=== PATIENT | female | born 1975 | race Caucasian/White ===

== ENCOUNTER → 2017-06-27 | Outpatient (CLI) | payer BC ==
[2017-06-27 13:46] LABS: MICROSCOPIC NOT IND
[2017-06-27 13:46] LABS: BASOPHILS # (AUTO) 0.02 x10^3/uL (0-0.1); BASOPHILS % (AUTO) 0 % (0-1); EOSINOPHILS # (AUTO) 0.23 x10^3/uL (0-0.4); EOSINOPHILS % (AUTO) 3 % (1-7); LYMPHOCYTES # (AUTO) 2.24 x10^3/uL (1-3.4); LYMPHOCYTES % (AUTO) 25 % (22-44); MD NO; MEAN CORPUSCULAR HEMOGLOBIN 28.5 pg (27.0-34.8); MEAN CORPUSCULAR HGB CONC 33.3 g/dL (32.4-35.8); MEAN CORPUSCULAR VOLUME 85.7 fL (80-100); MEAN PLATELET VOLUME 10.4 fL (7.4-10.4); MONOCYTES # (AUTO) 0.63 x10^3/uL (0.2-0.8); MONOCYTES % (AUTO) 7 % (2-9); NEUTROPHILS # (AUTO) 5.98 x10^3/uL (1.8-6.8); NEUTROPHILS % (AUTO) 66 % (42-75); PLATELET COUNT 213 x10^3/uL (130-400); RED BLOOD COUNT 5.13 x10^6/uL (3.82-5.3); RED CELL DISTRIBUTION WIDTH 14.2 % (9.6-15.2)
[2017-06-27 13:49] LABS: CULTURE INDICATED? NO
== END | disposition home or self-care (01) ==
LOC: STAR 12:33
PROVIDERS: ATTEND Obstetrics & Gynecology
DX: Z01.818 Encounter for other preprocedural examination (principal); D25.0 Submucous leiomyoma of uterus
CPT/HCPCS: 36415; 81003; 84702; 85025; 93005

== ENCOUNTER 2017-07-05 07:24 | Day surgery (SDC) | payer BC ==
[~2017-07-05] VITALS: Ht 160 cm; Wt 90.1 kg
[~2017-07-05 07:24] MED LIST: ASCO500T8 PO; BIOT1TAB2 PO; CHOL2000 PO; CYAN100014 PO; FERR159T3 PO; FOLI0.4T2 PO; UBID100C24 PO
[2017-07-05] MEDS ORDERED: LACTATED RINGERS 1,000 ML IV SCH (07:52)
[2017-07-05] MEDS ORDERED: ACETAMINOPHEN 500 MG TABLET ONE (08:22)
[2017-07-05] MEDS ORDERED: FAMOTIDINE 20 MG TABLET ONE (08:22)
[2017-07-05] MEDS ORDERED: OXYcodone IR 5MG TABLET ONE (08:23)
[2017-07-05] MEDS ORDERED: ACETAMINOPHEN 500 MG TABLET PO ONE (08:30)
[2017-07-05] MEDS ORDERED: OXYcodone IR 5MG TABLET PO ONE (08:30)
[2017-07-05] MEDS ORDERED: FAMOTIDINE 20 MG TABLET PO ONE (08:30)
[2017-07-05] MEDS ORDERED: GLYCOPYRROLATE 0.2MG/1ML, 5ML ONE (09:31)
[2017-07-05] MEDS ORDERED: SUCCINYLCHOLINE 20 MG/ML, 10ML ONE (09:31)
[2017-07-05] MEDS ORDERED: NEOSTIGMINE 1 MG/ML, 10ML ONE (09:31)
[2017-07-05] MEDS ORDERED: MIDAZOLAM 1 MG/ML, 2ML ONE (09:31)
[2017-07-05] MEDS ORDERED: FENTANYL PF 100 MCG/2ML ONE ×2 (09:31→11:34)
[2017-07-05] MEDS ORDERED: DEXAMETHASONE 4 MG/ML, 1ML ONE (09:31)
[2017-07-05] MEDS ORDERED: PROPOFOL 10 MG/ML, 20ML ONE ×2 (09:31)
[2017-07-05] MEDS ORDERED: CEFAZOLIN 1,000 MG ONE (09:31)
[2017-07-05] MEDS ORDERED: ONDANSETRON 2MG/ML, 2ML ONE (09:31)
[2017-07-05] MEDS ORDERED: SILVER NITRATE STICK TP ONE (09:48)
[2017-07-05] MEDS ORDERED: BUPIVACAINE 0.25% ONE (09:48)
[2017-07-05] MEDS ORDERED: KETOROLAC 30 MG/1 ML ONE (10:17)
[2017-07-05] MEDS ORDERED: PROMETHAZINE 25 MG/ML, 1ML IV PRN (10:30)
[2017-07-05] MEDS ORDERED: FENTANYL PF 100 MCG/2ML IV PRN (10:30)
[2017-07-05] MEDS ORDERED: OXYcodone 5 MG/5 ML ORAL.SOL UDC PO PRN (10:30)
[2017-07-05] MEDS ORDERED: ONDANSETRON 2MG/ML, 2ML IVPush PRN (10:30)
[2017-07-05] MEDS ORDERED: OXYcodone 5 MG/5 ML ORAL.SOL UDC ONE (11:34)
== END 2017-07-05 13:50 ==
LOC: OUT 07:24
PROVIDERS: ATTEND Obstetrics & Gynecology
DX: D25.0 Submucous leiomyoma of uterus (principal); Z98.890 Other specified postprocedural states; Z87.891 Personal history of nicotine dependence
CPT/HCPCS: 58561; 81025; 88305; J0330; J0690; J1100; J1885; J2250; J2405; J2704; J3010; J3490; J7120; J2710